=== PATIENT | female | born 1935 | race Caucasian/White ===

== ENCOUNTER 2018-09-07 11:13 | Observation (INO) ==
[2018-09-07 12:11] LABS: Basophils # 0.1 10*3/uL (0.0-0.2); Basophils % 0.5 % (0.0-0.8); Eosinophils # 0.1 10*3/uL (0.0-0.87); Eosinophils % 0.3 % (0.00-10.9); Hematocrit 41.8 VOL% (35.7-47.0); Hemoglobin 14.1 GM/DL (12.0-16.0); Immature Granulocytes % 1.7 %; Immature Granulocytes Absolute 0.24 #; Lymphocytes % 6.9 % (21.3-54.2); Mean Corpuscular HGB Conc 33.7 GM/DL (32-36); Mean Corpuscular Hemoglobin 28 PG (27-34); Mean Corpuscular Volume 83.6 FL (87-102); Mean Platelet Volume 10.1 FL (9.6-12.0); Monocytes # 1.8 10*3/uL (0.11-0.8); Monocytes % 12.3 % (1.7-12.7); Neutrophils # 11.4 10*3/uL (1.4-7.4); Neutrophils % 78.3 % (38.7-73.9); Platelet Count 219 T/CUMM (130-400); Red Cell Distribution Width 12.5 % (9.3-17.3); White Blood Count 14.5 T/CUMM (4-12)
[2018-09-07 12:24] LABS: Amorphous Crystals,Urine Occasional /HPF (Few); Apearance,Urine Slightly Hazy (Clear); Bilirubin,Urine Negative (Negative); Blood, Urine Negative (Negative); Glucose,Urine (UA) Negative (Negative); Ketones,Urine Negative (Negative); Nitrite,Urine Negative (Negative); Protein,Urine Negative; Urine Color Yellow (Yellow); Urine Specific Gravity 1.016 (1.001-1.035)
[2018-09-07 12:45] LABS: Albumin 3.5 G/DL (3.4-5.0); Bilirubin,Total 0.4 MG/DL (0.2-1.0); Calcium 8.9 MG/DL (8.5-10.1); Osmolality,Calculated 254.5 MOS/KG (273-304); Potassium 4.2 MMOL/L (3.5-5.1); Total Protein 6.3 G/DL (6.4-8.3)
[2018-09-07] MEDS ORDERED: ONDANSETRON 4 MG/2 ML VIAL IV PRN (14:28)
[2018-09-07] MEDS ORDERED: ACETAMINOPHEN 325 MG TABLET PO PRN (14:28)
[2018-09-07] MEDS ORDERED: SODIUM CHLORIDE 0.9% 500 ML IV STA (14:34)
[2018-09-07 15:42] LABS: Folate > 24.0 NG/ML (5.4-24.0); Vitamin B12 687 PG/ML (211-911)
[2018-09-07] MEDS: SODIUM CHLORIDE 0.9% 1,000 ML IV SCH (18:16)
[2018-09-07] MEDS: DONEPEZIL 10 MG TABLET PO SCH (20:09)
[2018-09-07] MEDS: ENOXAPARIN 40 MG/0.4 ML SYRINGE SUBCUT SCH (20:09)
[2018-09-08] MEDS: SODIUM CHLORIDE 0.9% 1,000 ML IV SCH ×3 (02:52→21:05)
[2018-09-08 08:07] LABS: Basophils # 0.1 10*3/uL (0.0-0.2); Basophils % 0.9 % (0.0-0.8); Eosinophils # 0.1 10*3/uL (0.0-0.87); Eosinophils % 1.7 % (0.00-10.9); Hematocrit 38.9 VOL% (35.7-47.0); Hemoglobin 12.9 GM/DL (12.0-16.0); Immature Granulocytes % 1.6 %; Immature Granulocytes Absolute 0.13 #; Lymphocytes # 1.7 10*3/uL (1.4-4.0); Lymphocytes % 20.2 % (21.3-54.2); Mean Corpuscular HGB Conc 33.2 GM/DL (32-36); Mean Corpuscular Hemoglobin 28 PG (27-34); Mean Corpuscular Volume 85.3 FL (87-102); Mean Platelet Volume 10.2 FL (9.6-12.0); Monocytes # 1.7 10*3/uL (0.11-0.8); Monocytes % 21.2 % (1.7-12.7); Neutrophils # 4.5 10*3/uL (1.4-7.4); Neutrophils % 54.4 % (38.7-73.9); Platelet Count 197 T/CUMM (130-400); Red Blood Count 4.56 MC/CUMM (3.8-5.5); Red Cell Distribution Width 12.6 % (9.3-17.3); White Blood Count 8.2 T/CUMM (4-12)
[2018-09-08 08:37] LABS: Alanine Aminotransferase 19 U/L (13-56); Albumin 2.9 G/DL (3.4-5.0); Alkaline Phosphatase 58 U/L (45-117); Aspartate Amino Transferase 13 U/L (0-37); Bilirubin,Total < 0.39 MG/DL (0.2-1.0); Blood Urea Nitrogen 12 MG/DL (7-18); Calcium 7.9 MG/DL (8.5-10.1); Total Protein 5.8 G/DL (6.4-8.3)
[2018-09-08 08:38] LABS: Cholesterol 119 MG/DL (50-200); Glucose 94 MG/DL (74-106); HDL Cholesterol 69 MG/DL (40-60); Osmolality,Calculated 263.5 MOS/KG (273-304); Potassium 3.8 MMOL/L (3.5-5.1); Risk Ratio 1.72; Sodium 132 MMOL/L (136-145); Triglycerides 73 MG/DL (2-150); VLDL CHOLESTEROL 14.6 MG/DL
[2018-09-08] MEDS: ASPIRIN EC 81 MG TABLET PO SCH (09:47)
[2018-09-08] MEDS: LISINOPRIL 10 MG TABLET PO SCH (09:47)
[2018-09-08] MEDS: buPROPion SR 100 MG TABLET PO SCH (09:47)
[2018-09-08] MEDS: DILTIAZEM CD 180 MG CAPSULE PO SCH (09:47)
[2018-09-08] MEDS: SIMVASTATIN 20 MG TABLET PO SCH (09:48)
[2018-09-08 12:43] LABS: Eosinophils 1 % (0-10); Lymphocytes 10 % (20-55); Segmented Neutrophils 72 % (50-85); Total Cells Counted 100
[2018-09-08 12:44] LABS: Platelet Estimate Adequate; Polychromasia Few
[2018-09-08] MEDS: DONEPEZIL 10 MG TABLET PO SCH (21:05)
[2018-09-08] MEDS: ENOXAPARIN 40 MG/0.4 ML SYRINGE SUBCUT SCH (21:05)
[2018-09-09] MEDS: SODIUM CHLORIDE 0.9% 1,000 ML IV SCH ×3 (03:29→06:31)
[2018-09-09 06:33] LABS: Calcium 8.7 MG/DL (8.5-10.1); Osmolality,Calculated 267.2 MOS/KG (273-304); Potassium 3.9 MMOL/L (3.5-5.1)
[2018-09-09] MEDS: LISINOPRIL 10 MG TABLET PO SCH (09:19)
[2018-09-09] MEDS: ASPIRIN EC 81 MG TABLET PO SCH (09:19)
[2018-09-09] MEDS: SIMVASTATIN 20 MG TABLET PO SCH (09:19)
[2018-09-09] MEDS: DILTIAZEM CD 180 MG CAPSULE PO SCH (09:19)
[2018-09-09] MEDS: buPROPion SR 100 MG TABLET PO SCH (09:19)
[2018-09-09 11:57] VITALS: BP 167/97
[2018-09-11 14:25] LABS: Osmolality, Urine 581 mOsm/kg (150 - 1150)
[2018-09-11 14:29] LABS: Osmolality, Serum 272 mOsm/kg (275 - 295)
== END 2018-09-09 11:45 | disposition home health service (06) ==
LOC: EDUNIT# → EDBD → N.EDINP 11:13 → N.ED 11:13 → N.3E 16:10
PROVIDERS: ADMIT Internal Medicine; ATTEND Internal Medicine